=== PATIENT | male | born 1960 | race American Indian/Alaskan Native ===

== ENCOUNTER 2018-04-03 21:39 | Emergency (ER) | payer OTHER ==
[2018-04-03 21:53] VITALS: BP 163/101; PULSE 93; TEMP 98.1; BMI 29.4
[2018-04-03] MEDS ORDERED: SODIUM CHLORIDE 1,000 ML IV STA ×2 (21:58→23:11)
--- NOTE | 2018-04-03 21:58 | PDOC ---
History of Present Illness - General Chief Complaint: Pain Stated Complaint: PAIN LEFT SIDE BACK Time Seen by Provider: 04/03/18 21:57 History Source: Patient Exam Limitations: No Limitations - History of Present Illness Travel History: No Initial Comments: 04/03/18 23:03 Best Contact: PCP: None Pmhx:N/A Pshx:N/A Allergies:NKDA 57-year-old male presents to the emergency department complaining of left side pain just below the ribs since approximately 1700 hrs. yesterday while driving. Patient states the pain was 9/10 sharp nonradiating intermittent discomfort. Patient states the pain is alleviated while rubbing his sides. Patient states the patient subsided last evening but this afternoon the pain recurred and felt the same 9/10 sharp nonradiating intermittent discomfort. Approximately 2 hours prior to his arrival to the ER tonight, patient states he has been pain-free. Patient denies nausea/vomiting, fever/chills, neck pain/stiffness, back pains, chest pain, shortness of breath, abdominal pains, urinary symptoms. Patient denies history of similar symptoms. Patient states he feels fine at this time. Past History - Past Medical History Allergies/Adverse Reactions: Allergies Allergy/AdvReac Type Severity Reaction Status Date / Time No Known Allergies Allergy Verified 04/03/18 21:50 Home Medications: Ambulatory Orders Albuterol Sulfate Inhaler - [Ventolin Hfa Inhaler -] 1 - 2 inh PO Q4H #1 inhaler 03/25/16 Azithromycin [Zithromax Tri-Luis (3 DAYS) -] 500 mg PO DAILY #3 tablet 03/25/16 Methylprednisolone [Medrol Dose Luis] 4 mg PO ASDIR #21 tablet 03/25/16 COPD: No Other medical history: Pt denies - Suicide/Smoking/Psychosocial Hx Smoking History: Never smoked Have you smoked in the past 12 months: No Information on smoking cessation initiated: No Hx Alcohol Use: No Drug/Substance Use Hx: No Substance Use Type: None Review of Systems - Review of Systems Able to Perform ROS?: Yes Comments:: 04/03/18 23:07 CONSTITUTIONAL: Absent: fever, chills, diaphoresis, generalized weakness, malaise, loss of appetite HEENT: Absent: rhinorrhea, nasal congestion, throat pain, throat swelling, difficulty swallowing, mouth swelling, ear pain, eye pain, visual Changes CARDIOVASCULAR: Absent: chest pain, loss of consciousness, palpitations, irregular heart rate, peripheral edema RESPIRATORY: Absent: cough, shortness of breath, dyspnea with exertion, orthopnea, wheezing, stridor, hemoptysis GASTROINTESTINAL: +Lefts ided pain just below the ribs but subsided Absent: abdominal pain, abdominal distension, nausea, vomiting, diarrhea, constipation, melena, hematochezia GENITOURINARY: Absent: dysuria, frequency, urgency, hesitancy, hematuria, flank pain, genital pain MUSCULOSKELETAL: Absent: myalgia, arthralgia, joint swelling SKIN: Absent: rash, itching, pallor HEMATOLOGIC/IMMUNOLOGIC: Absent: easy bleeding, easy bruising, lymphadenopathy, frequent infections ENDOCRINE: Absent: unexplained weight gain, unexplained weight loss, heat intolerance, cold intolerance NEUROLOGIC: Absent: headache, focal weakness or paresthesias, dizziness, unsteady gait, seizure, mental status changes, bladder or bowel incontinence PSYCHIATRIC: Absent: anxiety, depression, suicidal or homicidal ideation, hallucinations. Is the patient limited Tu[place]uan proficient: No *Physical Exam - Vital Signs Last Vital Signs Temp Pulse Resp BP Pulse Ox 98.1 F 93 H 18 163/101 97 04/03/18 21:51 04/03/18 21:51 04/03/18 21:51 04/03/18 21:51 04/03/18 21:51 - Physical Exam Comments: 04/03/18 23:08 GENERAL: Well developed, well nourished. Awake and alert. No acute distress. HEENT: Normocephalic, atraumatic. PERRLA, EOMI. No conjunctival pallor. Sclera are non- icteric. Moist mucous membranes. Oropharynx is clear. NECK: Supple. Full ROM. No JVD. Carotid pulses 2+ and symmetric, without bruits. No thyromegaly. No lymphadenopathy. CARDIOVASCULAR: Regular rate and rhythm. No murmurs, rubs, or gallops. Distal pulses are 2+ and symmetric. PULMONARY: No evidence of respiratory distress. Lungs clear to auscultation bilaterally. No wheezing, rales or rhonchi. ABDOMINAL: Soft. Non-tender. Non-distended. No rebound or guarding. No organomegaly. Normoactive bowel sounds. MUSCULOSKELETAL Normal range of motion at all joints. No bony deformities or tenderness. No CVA tenderness. EXTREMITIES: No cyanosis. No clubbing. No edema. No calf tenderness. SKIN: Warm and dry. Normal capillary refill. No rashes. No jaundice. NEUROLOGICAL: Alert, awake, appropriate. Cranial nerves 2-12 intact. No deficits to light touch and temperature in face, upper extremities and lower extremities. No motor deficits in the in face, upper extremities and lower extremities. Normoreflexic in the upper and lower extremities. Normal speech. Toes are down- going bilaterally. Gait is normal without ataxia. PSYCHIATRIC: Cooperative. Good eye contact. Appropriate mood and affect. ED Treatment Course - LABORATORY CBC & Chemistry Diagram: 04/03/18 22:00 04/03/18 22:00 Medical Decision Making - Medical Decision Making 04/03/18 23:11 Patient presents, to the ER complaining of left side pain just distal from her ribs since approximately 1700 hrs. last evening. The pain subsided late last night but recurred again this afternoon. As again, the pain has subsided prior to him coming to the ER. UA shows 1+ urine. Renal colic differential discussed with patient. Patient states no spiral CT because he is pain-free. BUN/ creatinine is a bit elevated. Patient will be given 1 L IV fluids. Patient will be discharged to follow-up with urology. Patient was informed to return back to the ER if symptoms recur. *DC/Admit/Observation/Transfer Diagnosis at time of Disposition: Pain - Discharge Dispostion Disposition: HOME Condition at time of disposition: Stable Admit: No - Referrals Referrals: Jose Camacho MD [Staff Physician] - - Patient Instructions Printed Discharge Instructions: Kidney Stones -- Adult Additional Instructions: Your presentation and symptoms points towards renal colic. Therefore, you need to follow-up with the urologist listed on your discharge. As per our conversation in the emergency department, your pain-free now and she return back to the ER for recurrent symptoms. - Post Discharge Activity
[2018-04-03 22:12] LABS: BASO % 0.7 % (0-2.0); EOS % 2.5 % (0-4.5); HEMATOCRIT 43.8 % (35.4-49); HEMOGLOBIN 14.8 GM/dL (11.7-16.9); LYMPH % 18.4 % (8-40); MCH 28.6 pg (25.7-33.7); MCHC 33.7 g/dl (32.0-35.9); MEAN CELL VOLUME 84.7 fl (80-96); MEAN PLT VOLUME 8.4 fl (7.5-11.1); MONO % 8.1 % (3.8-10.2); NEUT % 70.3 % (42.8-82.8); PLATELET COUNT 219 K/MM3 (134-434); RBC 5.17 M/mm3 (4.00-5.60); RDW 13.3 % (11.9-15.9); WHITE BLOOD COUNT 8.8 K/mm3 (4.0-10.0)
[2018-04-03 22:14] LABS: URINE APPEARANCE CLEAR; URINE BILIRUBIN NEGATIVE (<2.0 mg/dL); URINE COLOR LTYELLOW; URINE GLUCOSE (UA) NEGATIVE (NEGATIVE); URINE KETONE NEGATIVE (NEGATIVE); URINE LEUK ESTERASE NEGATIVE (NEGATIVE); URINE NITRITE NEGATIVE (NEGATIVE); URINE PROTEIN NEGATIVE (NEGATIVE); URINE UROBILINOGEN NEGATIVE mg/dL (0.2-1.0)
[2018-04-03 22:15] LABS: URINE MUCUS RARE
[2018-04-03 22:45] LABS: ALBUMIN 4.1 g/dl (3.4-5.0); ANION GAP 6 (8-16); BILIRUBIN,TOTAL 0.3 mg/dL (0.2-1.0); BLOOD UREA NITROGEN 25 mg/dL (7-18); CALCIUM 8.6 mg/dL (8.5-10.1); CHLORIDE 106 mmol/L (98-107); CO2 29 mmol/L (21-32); CREATININE 1.5 mg/dL (0.7-1.3); GLUCOSE,RANDOM 113 mg/dL (74-106); POTASSIUM 3.8 mmol/L (3.5-5.1); SGOT/AST 18 U/L (15-37); SGPT/ALT 44 U/L (12-78); SODIUM 141 mmol/L (136-145); TOT PROT 7.3 g/dl (6.4-8.2)
[2018-04-03 22:46] LABS: ALK PHOS 125 U/L (45-117)
== END 2018-04-04 00:25 | disposition home or self-care (01) ==
LOC: JER 21:39
PROC: 3E0337Z Introduction of Electrolytic and Water Balance Substance into Peripheral Vein, Percutaneous Approach (ICD-10-PCS; principal; 2018-04-03)
DX: R10.12 Left upper quadrant pain (principal); Z87.09 Personal history of other diseases of the respiratory system
CPT/HCPCS: 36415; 80053; 81003; 81015; 85025; 99281-25; J7030

== ENCOUNTER 2019-05-30 06:51 | Day surgery (SDC) | payer OTHER ==
[2019-05-27 15:04] VITALS: BMI 29.0
[2019-05-30] MEDS ORDERED: MIDAZOLAM HCL 2 MG/2 ML SINGLE DOSE VIAL ONE (08:48)
[2019-05-30] MEDS ORDERED: oxyCODONE HCL 5 MG TABLET PO PRN (09:37)
[2019-05-30 09:56] VITALS: TEMP 97.7
--- NOTE | 2019-05-30 10:14 | OP ---
Operative Note - Note: Operative Date: 05/30/19 Pre-Operative Diagnosis: Right renal stone Operation: Right ESWL Findings: 7 mm mid pole Left renal stone Surgeon: Jose Camacho Anesthesia: Fractional Estimated Blood Loss (mls): 0 Operative Report Dictated: Yes
[2019-05-30 13:06] VITALS: BP 144/77; PULSE 59
--- NOTE | 2019-05-30 20:05 | OP ---
DATE OF OPERATION: 05/30/2019 PREOPERATIVE DIAGNOSIS: Right renal stone. POSTOPERATIVE DIAGNOSIS: Right renal stone. PROCEDURE PERFORMED: Right extracorporeal shock wave lithotripsy. SURGEON: Jose Hicks MD ANESTHESIA: General. DESCRIPTION OF PROCEDURE: The patient was brought to the operating room and placed in the supine position on the operating room table. Ultrasonography and fluoroscopy were performed. A 7-mm left mid-pole stone was identified. After anesthesia, preoperative antibiotics were then administered. Shock wave lithotripsy was subsequently performed. The stone fragmented well under real time ultrasonography and fluoroscopy. No complications were noted. DISPOSITION: The patient was sent to the recovery room. Sharif [id number]
== END 2019-05-30 12:30 | disposition home or self-care (01) ==
LOC: JASU-SURG 06:51
PROVIDERS: ATTEND Urology
PROC: 0TF3XZZ Fragmentation in Right Kidney Pelvis, External Approach (ICD-10-PCS; principal; 2019-05-30 08:45)
DX: N20.0 Calculus of kidney (principal)

== ENCOUNTER 2021-04-01 04:54 | Day surgery (SDC) | payer OTHER ==
[2021-03-29 09:54] VITALS: BMI 42.7
[2021-04-01] MEDS ORDERED: MIDAZOLAM HCL 2 MG/2 ML SINGLE DOSE VIAL ONE (14:30)
[2021-04-01] MEDS ORDERED: PROPOFOL 20 ML ONE (14:30)
[2021-04-01] MEDS ORDERED: ONDANSETRON 4 MG/2 ML VIAL IVPUSH PRN (15:42)
[2021-04-01] MEDS ORDERED: ACETAMINOPHEN 325 MG TABLET (FP) PO PRN (15:42)
[2021-04-01] MEDS ORDERED: oxyCODONE HCL 5 MG TABLET PO PRN (15:42)
[2021-04-01] MEDS ORDERED: LACTATED RINGERS SOLUTION 1,000 ML IV SCH (15:45)
[2021-04-01 17:25] VITALS: BP 120/60; PULSE 80; TEMP 98
== END 2021-04-01 16:15 | disposition home or self-care (01) ==
LOC: JASU-SURG 04:54
PROVIDERS: ATTEND Urology
PROC: 0TF4XZZ Fragmentation in Left Kidney Pelvis, External Approach (ICD-10-PCS; principal; 2021-04-01 12:30)
DX: N20.0 Calculus of kidney (principal)

== ENCOUNTER 2022-09-01 04:26 | Day surgery (SDC) | payer OTHER ==
[2022-08-28 13:34] VITALS: BMI 42.7
[2022-09-01] MEDS ORDERED: ONDANSETRON 4 MG/2 ML VIAL ONE (14:42)
[2022-09-01] MEDS ORDERED: KETOROLAC TROMETHAMINE 30 MG/1 ML VIAL ONE (14:42)
[2022-09-01 16:11] VITALS: BP 165/91; PULSE 66; RESP 15; TEMP 98
== END 2022-09-01 16:10 | disposition home or self-care (01) ==
LOC: JASU-SURG 04:26
PROVIDERS: ATTEND Urology
PROC: 0TF3XZZ Fragmentation in Right Kidney Pelvis, External Approach (ICD-10-PCS; principal; 2022-09-01 14:30)
DX: N20.0 Calculus of kidney (principal)

== ENCOUNTER 2022-11-07 04:12 | Day surgery (SDC) | payer OTHER ==
[2022-11-06 09:28] VITALS: BMI 28.7
[2022-11-07 09:03] VITALS: RESP 18
[2022-11-07] MEDS ORDERED: BUPIVACAINE HCL/PF 0.5% (5MG/ML) 10 ML VIAL IJ ONE ×2 (11:00→11:04)
[2022-11-07] MEDS ORDERED: IOHEXOL 180 MG/1 ML ML IJ ONE (11:03)
[2022-11-07 11:25] VITALS: TEMP 97.7
[2022-11-07 11:44] VITALS: BP 152/81; PULSE 69
== END 2022-11-07 11:35 | disposition home or self-care (01) ==
LOC: JASU-SURG 04:12
PROVIDERS: ATTEND Pain Medicine Pain Medicine
PROC: 3E0T33Z Introduction of Anti-inflammatory into Peripheral Nerves and Plexi, Percutaneous Approach (ICD-10-PCS; 2022-11-07)
PROC: 3E0T3BZ Introduction of Anesthetic Agent into Peripheral Nerves and Plexi, Percutaneous Approach (ICD-10-PCS; principal; 2022-11-07 10:30)
DX: M47.812 Spondylosis without myelopathy or radiculopathy, cervical region (principal)
CPT/HCPCS: 76000-TC-FY